=== PATIENT | female | born 1955 | race Caucasian/White ===

== ENCOUNTER 2020-01-11 23:07 | Emergency (ER) | payer SELFPAY ==
[~2020-01-11] VITALS: Ht 167.6 cm; Wt 81.6 kg
[2020-01-12 01:29] VITALS: BP 110/70
[2020-01-12] MEDS ORDERED: methylPREDNISolone SOD SUCC 125 MG/2 ML VL IM ONE (01:45)
[2020-01-12] MEDS ORDERED: KETOROLAC TROMETH 60MG/2ML VIAL IM ONE (01:45)
== END 2020-01-12 02:41 | disposition home or self-care (01) ==
LOC: ER 23:07 → EDBD 23:07 → ER 01-12 02:41
DX: S42.211A Unspecified displaced fracture of surgical neck of right humerus, initial encounter for closed fracture (principal); E78.5 Hyperlipidemia, unspecified; E07.9 Disorder of thyroid, unspecified; W19.XXXA Unspecified fall, initial encounter; Y93.02 Activity, running; Y92.89 Other specified places as the place of occurrence of the external cause; Y99.8 Other external cause status
CPT/HCPCS: 29105; 73030; 96372; 99284; J1885; J2930